=== PATIENT | female | born 1970 | race Caucasian/White ===

== ENCOUNTER 2017-03-08 18:11 | Emergency (ER) | payer OTHER ==
[2017-03-08] MEDS ORDERED: Ketorolac INJ* 30 MG/ML 1 ML VIAL IV ONE (19:52)
[2017-03-08] MEDS ORDERED: NS 0.9% 1000 ML* 1,000 ML IV ONE (19:52)
--- NOTE | 2017-03-08 19:58 | ED ---
GI/ HPI - HPI Summary HPI Summary: Patient presents with suprapubic fullness and flank pain. She was seen at her [facility] today because she couldn't void and was straight cathed without urine output. She says when she urinates "only a few drops come out". She has had a stone before, but can't remember if it was a kidney stone or gall stone. She denies fever, chills, N/V/D. She has been eating and drinking regularly. - History of Current Complaint Chief Complaint: EDUrogenitalProblems Time Seen by Provider: 03/08/17 19:49 Stated Complaint: POSSIBLE KIDNEY STONE Hx Obtained From: Patient Onset/Duration: Started Hours Ago, Atraumatic, Still Present Timing: Constant Severity: Moderate Current Severity: Severe Pain Intensity: 6 Location of Pain: Suprapubic Pain Characteristics: Sharp, Pressure Pain Radiates to: Flank - left Associated Signs and Symptoms: Positive: Flank Pain Aggravating Factor(s): Nothing Alleviating Factor(s): Nothing - Allergy/Home Medications Allergies/Adverse Reactions: Allergies Allergy/AdvReac Type Severity Reaction Status Date / Time Codeine Allergy Mild Hives Verified 03/08/17 19:33 PMH/Surg Hx/FS Hx/Imm Hx Previously Healthy: Yes - Cancer History Hx Chemotherapy: No Hx Radiation Therapy: No - Surgical History Surgery Procedure, Year, and Place: TUBAL LIGATION Infectious Disease History: No Infectious Disease History: Denies: Traveled Outside the [place] in Last 30 Days - Family History Known Family History: Positive: None - Social History Occupation: Employed Full-time Lives: With Family Alcohol Use: Rare Substance Use Type: Reports: None Smoking Status (MU): Never Smoked Tobacco Review of Systems Negative: Fever, Chills Negative: Chest Pain Negative: Shortness Of Breath Positive: Abdominal Pain. Negative: Vomiting, Diarrhea, Nausea Positive: flank pain, other - "unable to void" All Other Systems Reviewed And Are Negative: Yes Physical Exam Triage Information Reviewed: Yes Vital Signs On Initial Exam: Initial Vitals Temp Pulse Resp BP Pulse Ox 98.7 F 82 16 153/99 99 03/08/17 18:19 03/08/17 18:19 03/08/17 18:19 03/08/17 18:19 03/08/17 18:19 Vital Signs Reviewed: Yes Appearance: Positive: Well-Appearing, Pain Distress - patient is unable to sit still on the stretcher, and keeps moving to try to find a comfortable position, Obese Skin: Positive: Warm, Skin Color Reflects Adequate Perfusion, Dry, Soft Head/Face: Positive: Normal Head/Face Inspection Eyes: Positive: EOMI, ALYSON, Conjunctiva Clear ENT: Positive: Hearing grossly normal Neck: Positive: Supple, Nontender, No Lymphadenopathy Respiratory/Lung Sounds: Positive: Clear to Auscultation, Breath Sounds Present Cardiovascular: Positive: RRR Abdomen Description: Positive: Nontender, Soft, CVA Tenderness (L), Distended. Negative: CVA Tenderness (R) Bowel Sounds: Positive: Present Musculoskeletal: Negative: Edema Left, Edema Right Neurological: Positive: Sensory/Motor Intact, Alert, Oriented to Person Place, Time, NV Bundle Intact Distally, Normal Gait Psychiatric: Positive: Affect/Mood Appropriate AVPU Assessment: Alert Diagnostics - Vital Signs Vital Signs Temp Pulse Resp BP Pulse Ox 03/08/17 19:30 98.1 F 72 20 133/88 100 03/08/17 18:19 98.7 F 82 16 153/99 99 - Laboratory Lab Statement: Any lab studies that have been ordered have been reviewed, and results considered in the medical decision making process. - CT No standard instances CT Interpretation: Positive (See Comments) CT Interpretation Completed By: Radiologist - Ultrasound No standard instances Ultrasound Interpretation: No Acute Changes Ultrasound Interpretation Completed By: Radiologist - no hydronephrosis Re-Evaluation - Re-Evaluation First Eval Re-Evaluation Time: 20:15 Change: Improved Comment: Pain has resolved. GIGU Course/Dx - Diagnoses Differential Diagnoses - Female: Ischemic Bowel, Ovarian Cyst, Ovarian Torsion, , Pyelonephritis, Renal Calculi, Renal Colic, Urinary Tract Infection, Ureteral Calculi Provider Diagnoses: Kidney stone Discharge - Discharge Plan Condition: Stable Disposition: HOME Prescriptions: Ketorolac TAB (NF) [Toradol TAB (NF)] 10 mg PO Q6H #12 tab Patient Education Materials: Kidney Stones (ED) Referrals: Jc Potts MD [Medical Doctor] - Ykui Allen NP [Primary Care Provider] - Additional Instructions: Please call Dr. Potts's office in the AM for a follow-up appointment this week. Use the medication prescribed for pain and strain your urine for the next 24 hours. Take the stone with you to your appointment. Drink extra fluids. Return to the emergency department if symptoms worsen.
--- NOTE | 2017-03-08 20:43 | RAD ---
INDICATION: Left flank abdominal pain. COMPARISON: Comparison is made with a prior CT of the abdomen and pelvis from December 06, 2013. TECHNIQUE: A CT scan of the abdomen and pelvis was performed without intravenous or oral contrast. Contiguous axial sections were obtained from the lung bases through the symphysis pubis. Images were reconstructed in the coronal and sagittal planes. FINDINGS: The lung bases are clear. No pleural effusion is present. The liver is decreased in attenuation consistent with fatty infiltration. No significant focal abnormality is seen. No calcified gallstones are noted. The spleen is within normal limits in size. The pancreas is within normal limits. The adrenal glands and kidneys are normal in size. There is mild dilatation of the left renal calyces pelvis and left ureter to the level of a 2 mm calculus at the left ureterovesical junction. This is causing mild hydronephrosis. No renal calculi are seen. The aorta is normal in caliber. There is mild calcific plaque present. No significant enlarged retroperitoneal lymph nodes are seen. The stomach, small and large bowel appear nondistended. The appendix is within normal limits. There is no evidence for diverticulitis or colitis. The uterus is anteverted and mildly enlarged. No free intraperitoneal air or fluid is seen. There is a small 2 cm left ovarian cyst. No significant focal osseous abnormality is seen. IMPRESSION: 1. THERE IS A 2 MM CALCULUS AT THE LEFT URETEROVESICAL JUNCTION CAUSING MILD HYDRONEPHROSIS. 2. HEPATIC STEATOSIS.
--- NOTE | 2017-03-08 21:32 | RAD ---
INDICATION: Left flank abdominal pain. COMPARISON: Correlation is made with a prior CT of the abdomen and pelvis of the same day. TECHNIQUE: Multiple real-time images of the left kidney were obtained. FINDINGS: The left kidney is normal in size shape and echogenicity. The kidney measured 10.2 x 4.7 x 5.2 cm. No significant focal abnormality or hydronephrosis was present. IMPRESSION: NO HYDRONEPHROSIS IS SEEN.
[2017-03-08 22:41] VITALS: BP 145/74
== END 2017-03-08 22:47 | disposition home or self-care (01) ==
LOC: ED 18:11
DX: N20.0 Calculus of kidney (principal); R10.84 Generalized abdominal pain
CPT/HCPCS: 74176; 76775; 96374; 99283; J1885